=== PATIENT | female | born 1970 | race African-American/Black ===

== ENCOUNTER → 2020-01-13 | Outpatient (CLI) | payer OTHER | END | disposition home or self-care (01) | LOC: MAMO-SONO 10:49 | PROVIDERS: ATTEND Obstetrics & Gynecology | DX: N18.1 Chronic kidney disease, stage 1 (principal); M32.8 Other forms of systemic lupus erythematosus; Z12.31 Encounter for screening mammogram for malignant neoplasm of breast; N60.11 Diffuse cystic mastopathy of right breast; N60.12 Diffuse cystic mastopathy of left breast ==